=== PATIENT | male | born 1950 | race Caucasian/White ===

== ENCOUNTER → 2016-10-07 | Outpatient (CLI) | payer OTHER, MEDICAID ==
[~2016-10-07] MED LIST: GADOBUTROL 10 ML VIAL IVP ONE
--- NOTE | 2016-10-07 16:18 | MR ---
MRI Cervical Spine (Without and With Contrast) History: Right C8 radiculitis, C4-C5 facet arthropathy, cervicalgia, M54.2, M12.88. Comparison: MRI July 2011. Technique: Sagittal T1, T2 and axial T1, T2 MR sequences of the cervical spine without contrast. Post contrast sagittal and axial T1-weighted sequences obtained with the uneventful intravenous administra tion of 5 mL Gadavist contrast. Findings: No cervical compression fractures or destructive osseous lesions. Cerebellar tonsils ar e in normal position. Cervical spinal cord demonstrates normal signal without cord edema or myelomala anh. C2-C3: No disk herniation or stenosis. C3-C4: No disk herniation or stenosis. C4-C5: Moderate degenerative disk disease with moderate disk space narrowing, dorsal disk/osteophyte complex, bilateral uncovertebral osteophytes, left greater than right, moderate left facet arthropath y and mild right facet arthropathy resulting in mild central canal stenosis, moderate to severe left neural foraminal stenosis and mild to moderate right neural foraminal stenosis with minimal retrolist hesis. Slight interval progression since the previous study. C5-C6: Moderate left facet arthropathy, mild right facet arthropathy, and mild degenerative disk dise ase without stenosis. C6-C7: Mild bilateral facet arthropathy without stenosis. C7-T1: Mild bilateral facet arthropathy without stenosis. No enhancing lesions, diskitis, or osteomyelitis. Impression: 1. C4-C5: Moderate to severe left neural foraminal stenosis, mild to moderate right neural foraminal stenosis and mild central canal stenosis secondary to moderate degenerative disk disease, degenerativ e retrolisthesis, and bilateral facet arthropathy, right worse than left. 2. No cord compression or edema. 3. No enhancing lesions, diskitis or osteomyelitis. 4. Please see above findings at specific disk levels.
== END ==
LOC: FIMAGING 12:14
DX: M48.02 Spinal stenosis, cervical region (principal); M50.321 Other cervical disc degeneration at C4-C5 level; M50.221 Other cervical disc displacement at C4-C5 level; M46.92 Unspecified inflammatory spondylopathy, cervical region
CPT/HCPCS: 72156; A9585

== ENCOUNTER → 2016-11-24 | Outpatient (CLI) | payer OTHER, MEDICAID | LOC: FIMAGING 12:35 | PROVIDERS: ATTEND Family Medicine | DX: M79.672 Pain in left foot (principal) ==

== ENCOUNTER → 2017-07-26 | Outpatient (CLI) | payer OTHER, MEDICAID | LOC: BMCIMAGING 16:07 | PROVIDERS: ATTEND Family Medicine | DX: M25.561 Pain in right knee (principal) ==